=== PATIENT | female | born 1965 | race Caucasian/White ===

== ENCOUNTER 2022-03-01 09:42 | Emergency (ER) | payer BC, OTHER ==
[~2022-03-01] VITALS: Ht 165.1 cm; Wt 76.7 kg
--- NOTE | 2022-03-01 09:50 | NUR ---
Pt ambulatory to room 4B and c/o GI upset since yesterday afternoon. Pt states she had an barium esophagram yesterday morning and thinks she's having GI upset from the barium she drank for the procedure.
[2022-03-01] MEDS ORDERED: PANTOPRAZOLE SODIUM 40 MG VIAL IV ONE (10:15)
[2022-03-01] MEDS ORDERED: MAG HYDROX/AL HYDROX/SIMETH 30 ML LIQUID UDC PO ONE (10:15)
[2022-03-01] MEDS ORDERED: DICYCLOMINE HCL 20 MG/2 ML AMPUL IM STA (10:15)
[2022-03-01] MEDS ORDERED: LIDOCAINE VISCUS 2% 15 ML UDC MM ONE (10:15)
[2022-03-01] MEDS ORDERED: ONDANSETRON 4 MG/2 ML VIAL IV ONE (10:15)
[2022-03-01] MEDS ORDERED: IV NORMAL SALINE 1000 ML BAG IV ONE (10:15)
[2022-03-01] MEDS ORDERED: PANTOPRAZOLE SODIUM 40 MG VIAL ONE (10:31)
[2022-03-01] MEDS ORDERED: DICYCLOMINE HCL LIQ 10 MG/5 ML UDC ONE (10:31)
[2022-03-01] MEDS ORDERED: LIDOCAINE VISCUS 2% 15 ML UDC ONE (10:31)
[2022-03-01] MEDS ORDERED: MAG HYDROX/AL HYDROX/SIMETH 30 ML LIQUID UDC ONE (10:31)
[2022-03-01] MEDS ORDERED: ONDANSETRON 4 MG/2 ML VIAL ONE (10:31)
--- NOTE | 2022-03-01 11:12 | NUR ---
PATIENT STATES PAIN DIMINISHED "SOME" AFTER SHE TOOK THE PO MEDS.
[2022-03-01 11:15] LABS: HEMATOCRIT 39.7 % (31.2-41.9); MEAN CORPUSCULAR HEMOGLOBIN 30.9 uug (24.7-32.8); MEAN CORPUSCULAR VOLUME 94.1 fL (75.5-95.3); PLATELET COUNT (AUTO) 314 K/uL (179-408)
[2022-03-01 12:03] LABS: *BILIRUBIN,URIN NEGATIVE (NEGATIVE); *BLOOD, URINE 1+ (NEGATIVE); *CLARITY,URINE CLEAR (CLEAR); *COLOR,URINE YELLOW (YELLOW); *KETONES,URINE NEGATIVE (NEGATIVE); *UROBILINOGEN,URINE 0.2 E.U./dl (NORMAL); LEUKOCYTE ESTERASE ,URINE NEGATIVE (NEGATIVE); NITRITE, URINE NEGATIVE (NEGATIVE); UGLUCOSE NEGATIVE (NEGATIVE)
[2022-03-01] MEDS ORDERED: FAMO-132 PO (12:24)
[2022-03-01] MEDS ORDERED: DICY10CA13 PO (12:24)
[2022-03-01] MEDS ORDERED: ONDA4TAB5 PO (12:24)
[2022-03-01 12:36] LABS: BILIRUBIN,DIRECT 0.1 mg/dL (0.0-0.2); BILIRUBIN,TOTAL 0.5 mg/dL (0.2-1.0); CREATININE 0.9 mg/dL (0.6-1.3); POTASSIUM 3.6 mmol/L (3.5-5.1); TOTAL PROTEIN, SERUM 7.9 g/dL (6.4-8.2)
[2022-03-01] MEDS ORDERED: HYDROCODONE/APAP 5-325MG TABLET PO ONE (13:15)
[2022-03-01 13:30] LABS: BACTERIA,URINE NONE SEEN /HPF (NONE SEEN); RBC,URINE 0-3 /HPF (0-3); SQUAMOUS EPITHELIAL CELL,UR FEW /HPF (NONE SEEN); WBC,URINE NONE SEEN /HPF (0-3)
--- NOTE | 2022-03-01 13:48 | NUR ---
Patient discharged to home in stable condition. Written and verbal after care instructions given. Patient verbalizes understanding of instructions. Stressed follow up or return to ER for worsening s/s.
== END 2022-03-01 14:02 | disposition home or self-care (01) ==
LOC: ER 09:42
DX: R10.84 Generalized abdominal pain (principal); K58.9 Irritable bowel syndrome, unspecified; Z91.041 Radiographic dye allergy status
CPT/HCPCS: 99284; 74176; 96374; 71045; 96361; 96375; 80076; 80048; 81001; 83690; 85025; 36415; 96372; J0500; J2405; C9113; J7040; A4663